=== PATIENT | female | born 1945 | race Caucasian/White ===

== ENCOUNTER 2022-02-19 00:52 | Outpatient (RCR) | payer MEDICARE, SELFPAY ==
[2022-02-12 09:36] LABS: Abs Immature Grans 0.24 10^3/uL (0.0-0.06); Absolute Lymphocyte Count 1.55 10^3/uL (1.2-3.4); Absolute Monocyte Count 2.82 10^3/uL (0.1-0.8); Basophils % 0.2; HCT 29.7 % (36.0-46.0); HGB 9.7 g/dL (11.2-15.7); Immature Grans % 0.9; Lymphocytes % 5.6; MCHC 32.7 % (32.0-36.0); MCV 86 fL (80-95); MPV 10.7 fL (8.0-11.0); Monocytes % 10.2; Neutrophils % 83.1; Platelet Count 413 10^3/uL (130-400); RBC 3.46 10^6/uL (3.93-5.22); RDW 14.6 % (11.7-14.6); RDW-SD 45.6 fL
[2022-02-12] MEDS: Normal Saline Flush 10 ML SYR IVP (09:40)
[2022-02-12 09:46] LABS: Absolute Basophil Count 0.06 10^3/uL (0.0-0.2); Absolute Neutrophil Count 22.99 10^3/uL (1.2-6.7); Diff Comment Diff Reviewed; RBC Morphology Normal
[2022-02-12 09:54] LABS: WBC 27.67 10^3/uL (4.4-10.8)
[2022-02-12 10:06] LABS: ALT 155 U/L (14-59); AST 64 U/L (15-37); Albumin 2.9 g/dL (3.4-5.0); Alkaline Phosphatase 250 U/L (46-116); Anion Gap 9.9 mmol/L (3-11); BUN 32 mg/dL (7-18); Bilirubin, Total 0.8 mg/dL (0.2-1.0); CO2 23.1 mmol/L (21.0-32.0); Calcium 9.6 mg/dL (8.5-10.1); Chloride 102 mmol/L (98-107); Estimated GFR 58.02 (mL/min/1.73m2); Glucose 188 mg/dL (74-106); Magnesium 1.1 mg/dL (1.8-2.4); Sodium 135 mmol/L (136-145); Total Protein 7.4 g/dL (6.4-8.2)
[2022-02-15 11:10] LABS: CA 19-9 134 U/mL (<35)
[2022-02-19 10:47] LABS: Abs Immature Grans 0.09 10^3/uL (0.0-0.06); Absolute Eosinophil Count 0.01 10^3/uL (0.0-0.7); Absolute Lymphocyte Count 1.92 10^3/uL (1.2-3.4); Absolute Monocyte Count 0.83 10^3/uL (0.1-0.8); Absolute Neutrophil Count 11.27 10^3/uL (1.2-6.7); Basophils % 0.1; Eosinophils % 0.1; HCT 27.3 % (36.0-46.0); HGB 8.9 g/dL (11.2-15.7); Immature Grans % 0.6; Lymphocytes % 13.6; MCH 28.2 pg (27.0-33.0); MCHC 32.6 % (32.0-36.0); MCV 86 fL (80-95); MPV 11.2 fL (8.0-11.0); Monocytes % 5.9; Neutrophils % 79.7; Nucleated RBC 0.1 % (0.0-0.3); Platelet Count 236 10^3/uL (130-400); RBC 3.16 10^6/uL (3.93-5.22); RDW 14.2 % (11.7-14.6); RDW-SD 44.7 fL; WBC 14.14 10^3/uL (4.4-10.8)
[2022-02-19 10:48] LABS: Absolute Basophil Count 0.01 10^3/uL (0.0-0.2)
[2022-02-19 11:00] LABS: ALT 161 U/L (14-59); AST 40 U/L (15-37); Albumin 2.7 g/dL (3.4-5.0); Alkaline Phosphatase 170 U/L (46-116); Anion Gap 10.7 mmol/L (3-11); BUN 42 mg/dL (7-18); Bilirubin, Total 0.7 mg/dL (0.2-1.0); CO2 18.3 mmol/L (21.0-32.0); CREATININE 1.1 mg/dL (0.55-1.02); Calcium 8.9 mg/dL (8.5-10.1); Chloride 104 mmol/L (98-107); Estimated GFR 51.75 (mL/min/1.73m2); Glucose 123 mg/dL (74-106); Sodium 133 mmol/L (136-145); Total Protein 6.6 g/dL (6.4-8.2)
[2022-02-19] MEDS: Normal Saline Flush 10 ML SYR IVP (11:15)
[2022-02-19 12:30] LABS: Magnesium 1.1 mg/dL (1.8-2.4)
[2022-02-22 11:42] LABS: CA 19-9 163 U/mL (<35)
== END 2022-03-06 23:59 | disposition home or self-care (01) ==
LOC: INF 00:52
PROVIDERS: PCP Family Medicine; Visit Provider Internal Medicine Hematology & Oncology
DX: C25.9 Malignant neoplasm of pancreas, unspecified (principal); Z45.2 Encounter for adjustment and management of vascular access device
CPT/HCPCS: 36591; 80053; 83735; 85025; 86301

== ENCOUNTER 2022-03-12 02:11 | Outpatient (RCR) | payer MEDICARE, SELFPAY ==
[2022-03-12] MEDS: Normal Saline Flush 10 ML SYR IVP (10:22)
[2022-03-12 10:33] LABS: Abs Immature Grans 0.79 10^3/uL (0.0-0.06); Basophils % 0.3; HCT 33.9 % (36.0-46.0); HGB 11.1 g/dL (11.2-15.7); Immature Grans % 2.7; Lymphocytes % 5.3; MCH 29.1 pg (27.0-33.0); MCHC 32.7 % (32.0-36.0); MCV 89 fL (80-95); MPV 9.5 fL (8.0-11.0); Neutrophils % 81.7; Nucleated RBC 0.1 % (0.0-0.3); Platelet Count 545 10^3/uL (130-400); RBC 3.81 10^6/uL (3.93-5.22); RDW 15.4 % (11.7-14.6); RDW-SD 49.2 fL
[2022-03-12 10:36] LABS: Absolute Basophil Count 0.09 10^3/uL (0.0-0.2); Absolute Lymphocyte Count 1.54 10^3/uL (1.2-3.4); Absolute Neutrophil Count 23.69 10^3/uL (1.2-6.7)
[2022-03-12 10:45] LABS: Diff Comment Agrees w/ Instrument; RBC Morphology Normal
[2022-03-12 10:59] LABS: ALT 119 U/L (14-59); AST 47 U/L (15-37); Albumin 2.1 g/dL (3.4-5.0); Alkaline Phosphatase 407 U/L (46-116); Anion Gap 5.8 mmol/L (3-11); BUN 31 mg/dL (7-18); Bilirubin, Total 0.7 mg/dL (0.2-1.0); CO2 30.2 mmol/L (21.0-32.0); CREATININE 0.8 mg/dL (0.55-1.02); Calcium 9.1 mg/dL (8.5-10.1); Chloride 99 mmol/L (98-107); Estimated GFR 75.84 (mL/min/1.73m2); Glucose 183 mg/dL (74-106); Magnesium 1.3 mg/dL (1.8-2.4); Sodium 135 mmol/L (136-145); Total Protein 6.2 g/dL (6.4-8.2)
[2022-03-15 11:58] LABS: CA 19-9 1405 U/mL (<35)
== END 2022-04-06 23:59 | disposition home or self-care (01) ==
LOC: INF 02:11
PROVIDERS: PCP Family Medicine; Visit Provider Internal Medicine Hematology & Oncology
DX: C25.9 Malignant neoplasm of pancreas, unspecified (principal); Z45.2 Encounter for adjustment and management of vascular access device
CPT/HCPCS: 36591; 80053; 83735; 85025; 86301